=== PATIENT | female | born 1995 | race Two or more races ===

== ENCOUNTER 2022-10-18 15:25 | Emergency (ER) | payer OTHER ==
[~2022-10-18] VITALS: Ht 162.6 cm; Wt 59.0 kg
[2022-10-18] MEDS ORDERED: PROPAFENONE HC225 M1 (15:44)
== END 2022-10-18 20:01 | disposition home or self-care (01) ==
LOC: ER 15:25
DX: B34.8 Other viral infections of unspecified site (principal); Z20.822 Contact with and (suspected) exposure to COVID-19

== ENCOUNTER 2023-06-21 14:51 | Emergency (ER) | payer OTHER ==
[~2023-06-21] VITALS: Ht 162.6 cm; Wt 61.2 kg
[~2023-06-21 14:51] MED LIST: PROPAFENONE HC225 M1
== END 2023-06-21 18:08 | disposition home or self-care (01) ==
LOC: ER 14:51
DX: J02.9 Acute pharyngitis, unspecified (principal); Z20.822 Contact with and (suspected) exposure to COVID-19

== ENCOUNTER 2023-10-07 07:42 | Outpatient (CLI) | payer OTHER | END 2023-10-07 07:50 | disposition home or self-care (01) | LOC: SONOGRAMA 07:42 | PROVIDERS: ATTEND Internal Medicine | DX: E04.1 Nontoxic single thyroid nodule (principal) ==